=== PATIENT | female | born 1990 | race Caucasian/White ===

== ENCOUNTER 2017-02-16 07:47 | Emergency (ER) | payer SELFPAY ==
[2017-02-16] MEDS ORDERED: 0.9 % SODIUM CHLORIDE 1,000 ML BAG IV ONE ×2 (08:06→08:52)
[2017-02-16] MEDS ORDERED: ONDANSETRON HCL IV 4 MG/2 ML VIAL IV ONE (08:06)
--- NOTE | 2017-02-16 08:11 | Emergency Department Record ---
History of Present Illness - General Chief Complaint: Numbness Stated Complaint: LIGHTHEADED Time Seen by Provider: 02/16/17 07:59 Source: Patient Mode of Arrival: Ambulatory Limitations: No limitations - History of Present Illness Initial Comments: The patient is here due to not feeling well for a day or so. She has been very weak all over and lightheaded with standing. Additionally she is having cramping on the L side of her body intermittently. There is no focal weakness or numbness. She has had nausea but no vomiting and also has had increased stool output from her ileostomy for a day. The patient has had similar problems in the past with dehydration and hypokalemia and believes she has the same now. There has been no fever, chills, dysuria, cough or SOB. Onset/Timin -: Days(s) Location: Left arm, Left face, Left leg History of same: Yes Place: Home Severity: Mild Improves With: None Associated Symptoms: Headaches, Loss of appetite, Nausea/vomiting, Weakness Treatments Prior to Arrival: None - [place] Coma Scale Eye Response: (4) Open spontaneously Motor Response: (6) Obeys commands Verbal Response: (5) Oriented [place] Total: 15 - Symptoms of Stroke Onset of Symptoms Date: 02/15/17 Onset of Symptoms Time: 15:00 Symptoms of stroke: Dizziness - Related Data Home Medications: Previous Rx's Medication Instructions Recorded Ondansetron [Zofran Odt] 4 mg SL .Q4-6H PRN #12 tab.rapdis 02/16/17 Sulfamethoxazole/Trimethoprim 1 tab PO BID #14 tab 02/16/17 [Bactrim Ds] Allergies/Adverse Reactions: Allergies Allergy/AdvReac Type Severity Reaction Status Date / Time No Known Drug Allergies Allergy Verified 02/16/17 07:58 Travel Screening - Travel/Exposure Within Last 30 Days Have you traveled within the last 30 days?: No - Travel/Exposure Within Last Year Have you traveled outside the [place] in the last year?: No - Additonal Travel Details Have you been exposed to anyone with a communicable illness?: No - Travel Symptoms Symptom Screening: None Review of Systems Constitutional: Reports: Malaise. Denies: Chills, Fever Eyes: Denies: Eye discharge ENT: Denies: Congestion Respiratory: Denies: Cough, Dyspnea Past Medical History - SOCIAL HISTORY Smoking Status: Never smoker Alcohol Use: None Drug Use: None - RESPIRATORY Hx Respiratory Disorders: No - CARDIOVASCULAR Hx Cardio Disorders: Yes Hx Irregular Heartbeat: Yes - NEURO Hx Neuro Disorders: No - GI Hx GI Disorders: Yes Hx GI Bleed: Yes (ulcertive colitis) Hx Irritable Bowel: Yes Hx Ulcer: Yes - Hx Genitourinary Disorders: No - ENDOCRINE Hx Endocrine Disorders: No Hx Diabetes: No - MUSCULOSKELETAL Hx Musculoskeletal Disorders: No - PSYCH Hx Psych Problems: No - HEMATOLOGY/ONCOLOGY Hx Hematology/Oncology Disorders: Yes Hx Anemia: Yes Hx Blood Disorders: Yes Family Medical History Any Significant Family History?: Yes Hx HTN: Mother Physical Exam - General General Appearance: Alert, Oriented x3, Cooperative, No acute distress - Head Head exam: Atraumatic, Normocephalic, Normal inspection - Eye Eye exam: Normal appearance, PERRL - ENT Throat exam: Normal inspection. negative: Tonsillar erythema, Tonsillar exudate - Neck Neck exam: Normal inspection, Full ROM. negative: Tenderness - Respiratory Respiratory exam: Normal lung sounds bilaterally. negative: Respiratory distress - Cardiovascular Cardiovascular Exam: Regular rate, Normal rhythm, Normal heart sounds - GI/Abdominal GI/Abdominal exam: Soft, Normal bowel sounds. negative: Tenderness - Extremities Extremities exam: Normal inspection, Full ROM, Normal capillary refill. negative: Tenderness - Neurological Neurological exam: Alert, Oriented X3, Reflexes normal. negative: Abnormal gait , Altered, Motor sensory deficit, Normal gait - Psychiatric Psychiatric exam: negative: Depressed, Flat affect Course Vital Signs 02/16/17 07:50 Temperature 97.7 F Pulse Rate 105 H Respiratory 16 Rate Blood Pressure 119/85 Pulse Ox 97 - Reevaluation(s) Reevaluation #1: The patient is doing a lot better. She denies any head or abdominal pain. Her nausea and weakness have significantly improved and she is up walking with no difficulty. 02/16/17 08:55 Reevaluation #2: The patient is doing much better at this time. She denies any weakness, numbness , or nausea. She states she feels 100% better. 02/16/17 10:06 Reevaluation #3: The patient is doing much better at this time. She is up walking with no difficulty and has no weakness or numbness or dizziness. She feels MUCH better and understands the need for the Bactrim. 02/16/17 11:04 Medical Decision Making - Data Complexity MDM Data: Labs Ordered and/or Reviewed - Lab Data Result diagrams: 02/16/17 10:29 02/16/17 08:10 - EKG Data -: EKG Interpreted by Me EKG: No Acute Changes (NSR, RSR' Neg ST-T changes.) Disposition Disposition: Discharge Clinical Impression: Cystitis Disposition: Home, Self-Care Condition: (2) Stable Instructions: Urinary Tract Infection in Women (ED) Additional Instructions: Please drink plenty of fluids and use the Zofran for nausea if needed. Please continue the Bactrim as directed. Please see your PCP for recheck in 3 days. Return to the ER for any worsening weakness, nausea, or any vomiting, pain or fever. Prescriptions: Ondansetron [Zofran Odt] 4 mg SL .Q4-6H PRN #12 tab.rapdis PRN Reason: Nausea Sulfamethoxazole/Trimethoprim [Bactrim Ds] 1 tab PO BID #14 tab Forms: Patient Portal Access Time of Disposition: 11:08 Quality - Quality Measures Quality Measures: N/A - Blood Pressure Screening View Details: Yes Does Patient Have Any of the Following: No Blood Pressure Classification: Normal BP Reading Systolic Measurement: 111 Diastolic Measurement: 69 Screening for High Blood Pressure: < Normal BP, F/U Not Required > [G8783]
[2017-02-16 08:18] LABS: BASO % 0.2 % (0-6); EOS % 0.3 % (0-6); GRAN % 77.6 % (47-80); HEMATOCRIT 47.1 % (35.0-47.0); HEMOGLOBIN 16.8 gm/dl (11.6-16.0); LYMPH % 13.6 % (16-45); MEAN CORPUSCULAR HEMOGLOBIN 27.4 pg (27-33); MEAN CORPUSCULAR HGB CONC 35.7 g/dl (32-36); MONO % 8.3 % (0-9); PLATELET COUNT 286 K/uL (130-400); RED BLOOD COUNT 6.12 M/uL (3.80-5.40); RED CELL DISTRIBUTION WIDTH 13.3 % (11.5-14.5); WHITE BLOOD COUNT W/O DIFF 9.7 K/uL (4.2-12.2)
[2017-02-16 08:27] LABS: BLOOD UREA NITROGEN 15 mg/dL (6-20)
[2017-02-16 08:28] LABS: CREATININE 0.7 mg/dL (0.5-0.9); EST GLOMERULAR FILTRATION RATE > 60 mL/min; TOTAL PROTEIN 8.5 g/dL (6.6-8.7)
[2017-02-16 08:30] LABS: GLUCOSE,RANDOM 115 mg/dL (74-109)
[2017-02-16 08:33] LABS: ALB/GLOB RATIO 1.5 (1.1-1.8); ALBUMIN 5.1 g/dL (4.0-5.0); ALKALINE PHOSPHATASE 66 U/L (35-104); ALT/SGPT 25 U/L (<33); AST/SGOT 22 U/L (10.0-35.0); LIPASE 24 U/L (13-60)
[2017-02-16 08:58] LABS: URINE APPEARANCE SL CLOUDY; URINE BILIRUBIN NEGATIVE (NEGATIVE); URINE BLOOD TRACE-I (NEGATIVE); URINE COLOR YELLOW; URINE GLUCOSE (UA) NEGATIVE (NEGATIVE); URINE KETONE NEGATIVE (NEGATIVE); URINE LEUKOCYTE ESTERASE SMALL (NEGATIVE); URINE NITRITE POSITIVE (NEGATIVE); URINE UROBILINOGEN 0.2 E.U./dL (0.20 - 1.00)
[2017-02-16 09:05] LABS: URINE BACTERIA 4+; URINE WBC >50 (0-2/hpf)
[2017-02-16 09:06] LABS: HCG,QUALITATIVE URINE NEGATIVE (NEGATIVE)
[2017-02-16] MEDS ORDERED: TMP/SMZ 160MG/800MG TAB PO ONE (09:45)
[2017-02-16 10:35] LABS: BASO % 0.1 % (0-6); EOS % 0.4 % (0-6); GRAN % 73.7 % (47-80); HEMATOCRIT 44.1 % (35.0-47.0); HEMOGLOBIN 15.4 gm/dl (11.6-16.0); LYMPH % 17.8 % (16-45); MEAN CELL VOLUME 78.2 fl (81-97); MEAN CORPUSCULAR HEMOGLOBIN 27.3 pg (27-33); MEAN CORPUSCULAR HGB CONC 34.9 g/dl (32-36); MEAN PLATELET VOLUME 10.9 fl (7.4-10.4); PLATELET COUNT 243 K/uL (130-400); RED BLOOD COUNT 5.64 M/uL (3.80-5.40); RED CELL DISTRIBUTION WIDTH 13.1 % (11.5-14.5); WHITE BLOOD COUNT W/O DIFF 7.9 K/uL (4.2-12.2)
== END 2017-02-16 11:14 | disposition home or self-care (01) ==
LOC: ER 07:47
DX: N30.01 Acute cystitis with hematuria (principal); R51 Headache; R11.2 Nausea with vomiting, unspecified; R53.1 Weakness; R20.0 Anesthesia of skin
CPT/HCPCS: 99284 ×2; 96374; 96361; 82248; 83690; 85025; 80053; 81001; 81025; 93005; 93010; J2405; J3490; J7030

== ENCOUNTER 2017-03-29 17:25 | Emergency (ER) | payer SELFPAY ==
[2017-03-29] MEDS ORDERED: 0.9 % SODIUM CHLORIDE 1,000 ML BAG IV ONE ×2 (17:39→19:13)
[2017-03-29] MEDS ORDERED: ONDANSETRON HCL IV 4 MG/2 ML VIAL IV ONE (17:45)
--- NOTE | 2017-03-29 17:53 | Emergency Department Record ---
History of Present Illness - General Source: Patient, Family Mode of Arrival: Ambulatory Limitations: No limitations - History of Present Illness Initial comments: 26 yo female presents with nausea, vomiting and diarrhea. The onset was about 2am. No blood in either. No fevers. She has a history of ulcerative colitis. She has been exposed to family with the same symptoms and patients at a local nursing care facility. She has cramps in the abdomen and leg cramps. No cough or congestion. No PCP. MD complaint: Abdominal pain, Diarrhea, Nausea, Vomiting Onset/Timin -: Hour(s) Associated Abdominal Pain: No Radiation: None Quality: Cramping Improves with: None Worsens with: None Context: Other Associated Symptoms: Nausea/vomiting <ANABELL WARD - Last Filed: 03/29/17 19:35> <Alina May - Last Filed: 03/29/17 21:47> - General Chief complaint: Vomiting Stated complaint: LEG CRAMPS, THROWING UP Time Seen by Provider: 03/29/17 17:38 - Related Data Previous Rx's Medication Instructions Recorded Ondansetron [Zofran Odt] 4 mg PO Q8H #7 tab.rapdis 03/29/17 Allergies Allergy/AdvReac Type Severity Reaction Status Date / Time No Known Drug Allergies Allergy Verified 02/16/17 07:58 Travel Screening - Travel/Exposure Within Last 30 Days Have you traveled within the last 30 days?: No - Travel/Exposure Within Last Year Have you traveled outside the [place] in the last year?: No - Additonal Travel Details Have you been exposed to anyone with a communicable illness?: No - Travel Symptoms Symptom Screening: None <ANABELL WARD - Last Filed: 03/29/17 19:35> Review of Systems Constitutional: Denies: Chills, Fever, Malaise, Weakness Eyes: Denies: Eye discharge ENT: Denies: Congestion, Throat pain Respiratory: Denies: Cough, Hemoptysis, Wheezes Cardiovascular: Denies: Chest pain, Syncope Endocrine: Denies: Fatigue Gastrointestinal: Reports: Abdominal pain, Diarrhea, Nausea, Vomiting. Denies: Constipation, Hematemesis, Hematochezia, Melena Genitourinary: Reports: Dysuria (on off one month). Denies: Urgency Musculoskeletal: Denies: Arthralgia, Back pain, Myalgia Skin: Denies: Bruising, Change in color, Rash Neurological: Denies: Confusion, Headache, Numbness, Weakness Psychiatric: Denies: Anxiety Hematological/Lymphatic: Denies: Blood Clots, Easy bleeding, Easy bruising, Swollen glands <ANABELL WARD - Last Filed: 03/29/17 19:35> Past Medical History - SOCIAL HISTORY Smoking Status: Never smoker Alcohol Use: None Drug Use: None - RESPIRATORY Hx Respiratory Disorders: No - CARDIOVASCULAR Hx Cardio Disorders: Yes Hx Irregular Heartbeat: Yes - NEURO Hx Neuro Disorders: No - GI Hx GI Disorders: Yes Hx GI Bleed: Yes (ulcertive colitis) Hx Irritable Bowel: Yes Hx Ulcer: Yes - Hx Genitourinary Disorders: No - ENDOCRINE Hx Endocrine Disorders: No Hx Diabetes: No - MUSCULOSKELETAL Hx Musculoskeletal Disorders: No - PSYCH Hx Psych Problems: No - HEMATOLOGY/ONCOLOGY Hx Hematology/Oncology Disorders: Yes Hx Anemia: Yes Hx Blood Disorders: Yes <ANABELL WARD - Last Filed: 03/29/17 19:35> Family Medical History Any Significant Family History?: No Hx HTN: Mother <ANABELL WARD - Last Filed: 03/29/17 19:35> Physical Exam - General General Appearance: Alert, Oriented x3, Cooperative, No acute distress Limitations: No limitations - Head Head exam: Normal inspection - Eye Eye exam: Normal appearance, PERRL. negative: Conjunctival injection, Scleral icterus - ENT ENT exam: Normal exam, Mucous membranes moist Ear exam: Normal external inspection Nasal Exam: Normal inspection Mouth exam: Normal external inspection - Neck Neck exam: Normal inspection, Full ROM. negative: Tenderness - Respiratory Respiratory exam: Normal lung sounds bilaterally. negative: Accessory muscle use, Decreased breath sounds, Respiratory distress, Rhonchi, Stridor, Wheezes - Cardiovascular Cardiovascular Exam: Tachycardia Peripheral Pulses: 2+: Radial (R), Radial (L) - GI/Abdominal GI/Abdominal exam: Soft, Tenderness (mild tenderness diffusely). negative: Guarding - Rectal Rectal exam: Deferred - exam: Deferred - Extremities Extremities exam: Normal inspection, Full ROM, Normal capillary refill. negative: Tenderness - Back Back exam: Reports: Normal inspection, Full ROM. Denies: CVA tenderness (R), CVA tenderness (L), Muscle spasm, Rash noted, Tenderness - Neurological Neurological exam: Alert, Normal gait, Oriented X3 - Psychiatric Psychiatric exam: Normal affect, Normal mood - Skin Skin exam: Dry, Intact, Normal color, Warm <ANABELL WARD - Last Filed: 03/29/17 19:35> Course Vital Signs 03/29/17 17:31 Temperature 98.2 F Pulse Rate 128 H Respiratory 20 Rate Blood Pressure 112/60 Pulse Ox 97 - Reevaluation(s) Reevaluation #1: 03/29/17 18:27 CBC reviewed. WBC count is 16 The patient reports the nausea is better but still some pain. 03/29/17 18:28 UA demonstrates blood otherwise negative 03/29/17 19:12 The abdomen remains tender in the right lower abdomen. Given the elevated WBC count CT was ordered The CMP and Lipase were reviewed. Tbili is 3.3 03/29/17 19:30 03/29/17 19:34 The case was turned over at the bedside to Dr May for CT scan and recheck 03/29/17 19:35 <ANABELL WARD - Last Filed: 03/29/17 19:35> Vital Signs 03/29/17 03/29/17 03/29/17 17:31 18:24 19:13 Temperature 98.2 F Pulse Rate 128 H Pulse Rate [ 99 H 85 Pulse Ox Probe] Respiratory 20 20 20 Rate Blood Pressure 112/60 Blood Pressure 122/73 108/62 [Left Arm] Pulse Ox 97 99 98 03/29/17 19:37 Temperature Pulse Rate Pulse Rate [ 99 H Pulse Ox Probe] Respiratory 20 Rate Blood Pressure Blood Pressure 109/73 [Left Arm] Pulse Ox 95 - Reevaluation(s) Reevaluation #2: 03/29/17 21:40 cat scan is neg for acute findings. pt feels better <Alina May - Last Filed: 03/29/17 21:47> Medical Decision Making - Lab Data Result diagrams: 03/29/17 17:59 03/29/17 17:59 <ANABELL WARD - Last Filed: 03/29/17 19:35> - Lab Data Result diagrams: 03/29/17 17:59 03/29/17 17:59 Lab Results 03/29/17 03/29/17 03/29/17 Range/Units 17:59 17:59 17:59 WBC 16.7 H (4.2-12.2) K/uL RBC 6.41 H (3.80-5.40) M/uL Hgb 16.9 H (11.6-16.0) gm/dl Hct 50.6 H (35.0-47.0) % MCV 78.9 L (81-97) fl MCH 26.3 L (27-33) pg MCHC 33.4 (32-36) g/dl RDW 13.4 (11.5-14.5) % Plt Count 334 (130-400) K/uL MPV 11.1 H (7.4-10.4) fl Neutrophils % 84.0 H (47-80) % Band Neutrophils % 4.0 (0-5) % Lymphocytes % 7.6 L (16-45) % Monocytes % 5.3 (0-9) % Eosinophils % 0.1 (0-6) % Basophils % 0.1 (0-6) % Lymphocytes 7.0 L (16-45) % Monocytes 5.0 (0-9) % Basophils 0.0 (0-6) % Eosinophil Count 0.0 (0-6) % Sodium 137 (136-145) mmol/L Potassium 4.7 H (3.4-4.5) mmol/L Chloride 96 L (98-107) mmol/L Carbon Dioxide 25.0 (22-29) mmol/L Anion Gap 16.0 (7-16) BUN 23 H (6-20) mg/dL Creatinine 0.8 (0.5-0.9) mg/dL Estimated GFR > 60 mL/min Random Glucose 97 (74-109) mg/dL Calcium 9.2 (8.6-10.0) mg/dL Total Bilirubin 3.30 H (0.2-1.0) mg/dL AST 25 (10.0-35.0) U/L ALT 48 H (<33) U/L Alkaline Phosphatase 71 (35-104) U/L Total Protein 8.0 (6.6-8.7) g/dL Albumin 4.9 (4.0-5.0) g/dL Globulin 3.1 (1.4-4.8) gm/dL Albumin/Globulin Ratio 1.6 (1.1-1.8) Lipase 22 (13-60) U/L Urine Color Urine Appearance Urine pH (5.0-8.0) Ur Specific [place] (1.002-1.030) Urine Protein (NEGATIVE) Urine Glucose (UA) (NEGATIVE) Urine Ketones (NEGATIVE) Urine Blood (NEGATIVE) Urine Nitrite (NEGATIVE) Urine Bilirubin (NEGATIVE) Urine Urobilinogen (0.20 - 1.00) E.U./dL Ur Leukocyte Esterase (NEGATIVE) Urine RBC (NONE SEEN) Urine WBC (0-2/hpf) Ur Epithelial Cells (FEW) Amorphous Sediment Urine Mucus Urine HCG, Qual (NEGATIVE) Stool Occult Blood (NEGATIVE) Stool for White Cells (NO WBC'S) Rotavirus Antigen (NOT DETECT) C. difficile Ag & Toxin (NOT DETECT) 03/29/17 03/29/17 03/29/17 Range/Units 17:59 19:50 19:50 WBC (4.2-12.2) K/uL RBC (3.80-5.40) M/uL Hgb (11.6-16.0) gm/dl Hct (35.0-47.0) % MCV (81-97) fl MCH (27-33) pg MCHC (32-36) g/dl RDW (11.5-14.5) % Plt Count (130-400) K/uL MPV (7.4-10.4) fl Neutrophils % (47-80) % Band Neutrophils % (0-5) % Lymphocytes % (16-45) % Monocytes % (0-9) % Eosinophils % (0-6) % Basophils % (0-6) % Lymphocytes (16-45) % Monocytes (0-9) % Basophils (0-6) % Eosinophil Count (0-6) % Sodium (136-145) mmol/L Potassium (3.4-4.5) mmol/L Chloride (98-107) mmol/L Carbon Dioxide (22-29) mmol/L Anion Gap (7-16) BUN (6-20) mg/dL Creatinine (0.5-0.9) mg/dL Estimated GFR mL/min Random Glucose (74-109) mg/dL Calcium (8.6-10.0) mg/dL Total Bilirubin (0.2-1.0) mg/dL AST (10.0-35.0) U/L ALT (<33) U/L Alkaline Phosphatase (35-104) U/L Total Protein (6.6-8.7) g/dL Albumin (4.0-5.0) g/dL Globulin (1.4-4.8) gm/dL Albumin/Globulin Ratio (1.1-1.8) Lipase (13-60) U/L Urine Color Yellow Urine Appearance Clear Urine pH 6.0 (5.0-8.0) Ur Specific [place] >= 1.030 (1.002-1.030) Urine Protein 100 mg/dl H (NEGATIVE) Urine Glucose (UA) Negative (NEGATIVE) Urine Ketones Negative (NEGATIVE) Urine Blood Moderate (NEGATIVE) Urine Nitrite Negative (NEGATIVE) Urine Bilirubin Small H (NEGATIVE) Urine Urobilinogen 0.2 (0.20 - 1.00) E.U./dL Ur Leukocyte Esterase Negative (NEGATIVE) Urine RBC 21 - 35 (NONE SEEN) Urine WBC 3 - 5 (0-2/hpf) Ur Epithelial Cells 7 - 10 (FEW) Amorphous Sediment 3+ Urine Mucus Heavy Urine HCG, Qual Negative (NEGATIVE) Stool Occult Blood Negative (NEGATIVE) Stool for White Cells No wbc's observed (NO WBC'S) Rotavirus Antigen (NOT DETECT) C. difficile Ag & Toxin (NOT DETECT) 03/29/17 Range/Units 19:50 WBC (4.2-12.2) K/uL RBC (3.80-5.40) M/uL Hgb (11.6-16.0) gm/dl Hct (35.0-47.0) % MCV (81-97) fl MCH (27-33) pg MCHC (32-36) g/dl RDW (11.5-14.5) % Plt Count (130-400) K/uL MPV (7.4-10.4) fl Neutrophils % (47-80) % Band Neutrophils % (0-5) % Lymphocytes % (16-45) % Monocytes % (0-9) % Eosinophils % (0-6) % Basophils % (0-6) % Lymphocytes (16-45) % Monocytes (0-9) % Basophils (0-6) % Eosinophil Count (0-6) % Sodium (136-145) mmol/L Potassium (3.4-4.5) mmol/L Chloride (98-107) mmol/L Carbon Dioxide (22-29) mmol/L Anion Gap (7-16) BUN (6-20) mg/dL Creatinine (0.5-0.9) mg/dL Estimated GFR mL/min Random Glucose (74-109) mg/dL Calcium (8.6-10.0) mg/dL Total Bilirubin (0.2-1.0) mg/dL AST (10.0-35.0) U/L ALT (<33) U/L Alkaline Phosphatase (35-104) U/L Total Protein (6.6-8.7) g/dL Albumin (4.0-5.0) g/dL Globulin (1.4-4.8) gm/dL Albumin/Globulin Ratio (1.1-1.8) Lipase (13-60) U/L Urine Color Urine Appearance Urine pH (5.0-8.0) Ur Specific [place] (1.002-1.030) Urine Protein (NEGATIVE) Urine Glucose (UA) (NEGATIVE) Urine Ketones (NEGATIVE) Urine Blood (NEGATIVE) Urine Nitrite (NEGATIVE) Urine Bilirubin (NEGATIVE) Urine Urobilinogen (0.20 - 1.00) E.U./dL Ur Leukocyte Esterase (NEGATIVE) Urine RBC (NONE SEEN) Urine WBC (0-2/hpf) Ur Epithelial Cells (FEW) Amorphous Sediment Urine Mucus Urine HCG, Qual (NEGATIVE) Stool Occult Blood (NEGATIVE) Stool for White Cells (NO WBC'S) Rotavirus Antigen Not detected (NOT DETECT) C. difficile Ag & Toxin Not detected (NOT DETECT) <Alina May - Last Filed: 03/29/17 21:47> Disposition Disposition: Discharge Time of Disposition: 19:32 <ANABELL WARD - Last Filed: 03/29/17 19:35> Disposition: Discharge <Alina May - Last Filed: 03/29/17 21:47> Clinical Impression: Abdominal pain Qualifiers: Abdominal location: generalized Qualified Code(s): R10.84 - Generalized abdominal pain Vomiting Qualifiers: Vomiting type: unspecified Vomiting Intractability: non-intractable Nausea presence: with nausea Qualified Code(s): R11.2 - Nausea with vomiting, unspecified Diarrhea Qualifiers: Diarrhea type: unspecified type Qualified Code(s): R19.7 - Diarrhea, unspecified Disposition: Home, Self-Care Condition: (1) Good Additional Instructions: follow up with family doctor. return sooner if worse. push fluids Prescriptions: Ondansetron [Zofran Odt] 4 mg PO Q8H #7 tab.rapdis Forms: Patient Portal Access Quality - Quality Measures Quality Measures: N/A - Blood Pressure Screening Does Patient Have Any of the Following: No Blood Pressure Classification: Normal BP Reading Systolic Measurement: 112 Diastolic Measurement: 60 Screening for High Blood Pressure: < Normal BP, F/U Not Required > [G8783] <ANABELL WARD - Last Filed: 03/29/17 19:35> - Blood Pressure Screening Does Patient Have Any of the Following: No Blood Pressure Classification: Normal BP Reading Systolic Measurement: 112 Diastolic Measurement: 60 Screening for High Blood Pressure: < Normal BP, F/U Not Required > [G8783] <Alina May - Last Filed: 03/29/17 21:47>
[2017-03-29 18:05] LABS: URINE APPEARANCE CLEAR; URINE BILIRUBIN SMALL (NEGATIVE); URINE BLOOD MODERATE (NEGATIVE); URINE COLOR YELLOW; URINE GLUCOSE (UA) NEGATIVE (NEGATIVE); URINE KETONE NEGATIVE (NEGATIVE); URINE LEUKOCYTE ESTERASE NEGATIVE (NEGATIVE); URINE NITRITE NEGATIVE (NEGATIVE); URINE UROBILINOGEN 0.2 E.U./dL (0.20 - 1.00)
[2017-03-29 18:08] LABS: HCG,QUALITATIVE URINE NEGATIVE (NEGATIVE)
[2017-03-29 18:09] LABS: BASO % 0.1 % (0-6); EOS % 0.1 % (0-6); HEMATOCRIT 50.6 % (35.0-47.0); HEMOGLOBIN 16.9 gm/dl (11.6-16.0); LYMPH % 7.6 % (16-45); MEAN CELL VOLUME 78.9 fl (81-97); MEAN CORPUSCULAR HGB CONC 33.4 g/dl (32-36); MEAN PLATELET VOLUME 11.1 fl (7.4-10.4); MONO % 5.3 % (0-9); PLATELET COUNT 334 K/uL (130-400); RED BLOOD COUNT 6.41 M/uL (3.80-5.40); RED CELL DISTRIBUTION WIDTH 13.4 % (11.5-14.5); WHITE BLOOD COUNT W/O DIFF 16.7 K/uL (4.2-12.2)
[2017-03-29 18:12] LABS: MEAN CORPUSCULAR HEMOGLOBIN 26.3 pg (27-33)
[2017-03-29 18:16] LABS: URINE RBC 21 - 35 (NONE SEEN)
[2017-03-29 18:17] LABS: URINE AMORPHOUS SEDIMENT 3+; URINE MUCUS HEAVY
[2017-03-29] MEDS ORDERED: MORPHINE SULFATE 5 MG/ML PFS IVP ONE (18:27)
[2017-03-29] MEDS ORDERED: 0.9 % SODIUM CHLORIDE 1000ML 1,000 ML IV ONE (18:54)
[2017-03-29 18:59] LABS: ALBUMIN 4.9 g/dL (4.0-5.0)
[2017-03-29 19:00] LABS: ALB/GLOB RATIO 1.6 (1.1-1.8); ALKALINE PHOSPHATASE 71 U/L (35-104); ALT/SGPT 48 U/L (<33); AST/SGOT 25 U/L (10.0-35.0); BLOOD UREA NITROGEN 23 mg/dL (6-20); CREATININE 0.8 mg/dL (0.5-0.9); EST GLOMERULAR FILTRATION RATE > 60 mL/min; GLUCOSE,RANDOM 97 mg/dL (74-109)
[2017-03-29 20:22] LABS: ROTOVIRUS NOT DETECTED (NOT DETECT)
[2017-03-29] MEDS ORDERED: HYDROMORPHONE HCL 1 MG/ML SYRINGE IVP ONE (20:30)
[2017-03-29 21:17] LABS: MOLECULAR C DIFF TOXIN SCREEN NOT DETECTED (NOT DETECT)
--- NOTE | 2017-03-30 11:28 | CT SCAN REPORT ---
EXAM: CT SCAN ABDOMEN/PELVIS W CONTRAST HISTORY: RIGHT LOWER QUADRANT ABDOMINAL PAIN. ULCERATIVE COLITIS. VOMITING. TECHNIQUE: Standard CT imaging of the abdomen and pelvis was performed with oral and intravenous contrast. 100 mL of Omnipaque-300 were administered. COMPARISON: None. FINDINGS: The lung bases are clear. The liver, gallbladder, biliary tree, pancreas, spleen, and adrenal glands are normal. The kidneys and ureters are unremarkable. The aorta is normal in caliber. There is no retroperitoneal lymphadenopathy. The stomach and epigastrium are normal. The patient is status post colectomy. An ileostomy is noted within the left lower quadrant. The small bowel loops are normal in appearance. There is no obstruction or focal inflammatory process. There is no pneumoperitoneum. There is a small amount of free fluid within the pelvis, which is likely physiologic. The uterus and ovaries are normal. The urinary bladder is unremarkable. There are no acute osseous abnormalities. IMPRESSION: 1. NO ACUTE INTRAABDOMINAL PATHOLOGY. 2. STATUS POST COLECTOMY WITH A LEFT LOWER QUADRANT ILEOSTOMY. 3. A SMALL AMOUNT OF FREE FLUID IS PRESENT WITHIN THE PELVIS AND IS LIKELY PHYSIOLOGIC. JOB NUMBER: [id number] [facility]
== END 2017-03-29 21:57 | disposition home or self-care (01) ==
LOC: ER 17:25
DX: R10.84 Generalized abdominal pain (principal); R11.2 Nausea with vomiting, unspecified; R19.7 Diarrhea, unspecified; R42 Dizziness and giddiness
CPT/HCPCS: 99284 ×2; 96374; 96375; 96361; 83690; 87329; 80053; 81001; 89055; 87425; 81025; 82272; 87493; 85027; 74177; Q9967; J2405; J2270; J1170; J7030